=== PATIENT | female | born 1940 | race Caucasian/White ===

== ENCOUNTER → 2021-07-28 | Outpatient (CLI) | payer MEDICARE, BC ==
--- NOTE | 2021-07-28 16:26 | RAD ---
EXAMINATION: US ABDOMEN COMPLETE 07/28/2021 9:36 AM INDICATION: Epigastric pain, bloating TECHNIQUE: Pimentel scale and color Doppler ultrasound images of the abdomen were obtained. COMPARISON: None. FINDINGS: Liver: The liver is mildly enlarged measuring 19.6 cm in length. There is mildly increased hepatic ec hogenicity. No focal liver lesion. Gallbladder: The gallbladder is normal in caliber. No cholelithiasis or sludge. The gallbladder wa ll is normal in thickness measuring 1.7 mm. Sonographic Parham's sign is negative. Bile ducts: The common bile duct is normal measuring 4 mm. No intrahepatic biliary duct dilatation. Kidneys: The right kidney measures 9.7 x 4.8 x 4.0 cm. The left kidney measures 10.8 x 4.4 x 4.2 cm. Normal cortical thickness and echogenicity bilaterally. No hydronephrosis. Spleen: Spleen is normal measuring 7.5 cm. Other: Abdominal aorta and inferior vena cava are normal in caliber where visualized. The pancreas i s not well visualized. IMPRESSION: Mild hepatomegaly and hepatic steatosis. Electronically signed by: Bindu Buckley MD (07/28/2021 4:24 PM) [id number]
== END ==
LOC: US 09:30
PROVIDERS: ATTEND Internal Medicine Gastroenterology
DX: R16.0 Hepatomegaly, not elsewhere classified (principal); K76.0 Fatty (change of) liver, not elsewhere classified; R10.819 Abdominal tenderness, unspecified site
CPT/HCPCS: 76700

== ENCOUNTER → 2022-02-21 | Outpatient (CLI) | payer MEDICARE ==
--- NOTE | 2022-02-21 13:55 | RAD ---
Exam : Carotid Duplex with Grayscale Ultrasound and Spectral and Color Doppler Analysis 02/21/2022 1:4 9 PM Clinical Indications: Dizziness, history of smoking Comparison study: None available. PQRS Compliance Statement - Stenosis calculations for CT, MR and conventional angiography are based u hoa measurement of the distal ICA diameter in accordance with the NASCET methodology. Stenosis calcu lations for carotid ultrasound studies are derived from validated velocity criteria which are known t o correlate with the NASCET methodology. Findings: The common, internal and external carotid arteries were examined by grayscale, color and spectral Do ppler ultrasound. Mild diffuse atherosclerotic vascular disease noted No evidence of occlusion or ove rt narrowing on color Doppler imaging is identified. Left vertebral artery flow is retrograde. Antegr mallika flow is noted on the right. The following are the velocities and ratios in the carotid arteries on both sides: RIGHT ICA PV: 87cm/sec RIGHT CCA PV: 91cm/sec RIGHT ICA ED: 26cm/sec RIGHT IC/CCPV: Less than 2 RIGHT VERTEBRAL: antegrade flow LEFT ICA PV: 124cm/sec LEFT CCA PV: 86cm/sec LEFT ICA ED: 28cm/sec LEFT IC/CCPV: Less than 2 LEFT VERTEBRAL: Retrograde flow <50% ICA Stenosis: PSV < 125cm/s (EDV < 40cm/s; SVR < 2.0) 50-69% ICA Stenosis: PSV < 125-229cm/s (EDV 40-99cm/s; SVR 2.0-3.9) >70% ICA Stenosis: PSV > 230cm/s (EDV >100cm/s; SVR >4.0) Impression: 1. Less than 50% stenosis of the bilateral internal carotid arteries by ultrasound criterion 2. Reversal of flow in the left vertebral artery. 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 Recommend comparison of bilateral brachial artery blood pressures, evidence of upper extremity claudication, and consideration CT angiography for further gayle luation as clinically indicated. Electronically signed by: Krishan Serna MD (02/21/2022 1:53 PM) [id number]
== END ==
LOC: US 10:52
PROVIDERS: ATTEND Family Medicine
DX: I65.23 Occlusion and stenosis of bilateral carotid arteries (principal); R42 Dizziness and giddiness
CPT/HCPCS: 93880